=== PATIENT | male | born 1960 | race Caucasian/White ===

== ENCOUNTER 2023-10-13 10:54 | Emergency (ER) | payer BC ==
[~2023-10-13] VITALS: Ht 175.3 cm; Wt 83.9 kg
[2023-10-13 11:00] VITALS: BP_SYST 159; PULSE 78; RESP 18; TEMP 97.8; O2SAT 95
[2023-10-13] MEDS ORDERED: CYCL10TA24 PO (13:32)
[2023-10-13] MEDS ORDERED: NAPR-1172 PO (13:32)
[2023-10-13] MEDS ORDERED: LIDO1ADH22 TP (13:32)
[2023-10-13] MEDS: LIDOCAINE PATCH 5% 1 EA TP ONE (13:51)
[2023-10-13 13:58] VITALS: BP_SYST 159; PULSE 78; RESP 18; TEMP 97.8; O2SAT 95
== END 2023-10-13 13:56 | disposition home or self-care (01) ==
LOC: SED 10:54
DX: S29.011A Strain of muscle and tendon of front wall of thorax, initial encounter (principal); Z79.899 Other long term (current) drug therapy; X58.XXXA Exposure to other specified factors, initial encounter; Y93.89 Activity, other specified; Y92.89 Other specified places as the place of occurrence of the external cause; Y99.8 Other external cause status
CPT/HCPCS: 71045; 71100; 99284

== ENCOUNTER 2024-04-04 13:38 | Emergency (ER) | payer BC ==
[~2024-04-04] VITALS: Ht 177.8 cm; Wt 86.2 kg
[~2024-04-04 13:38] MED LIST: CYCL10TA24 PO; LIDO1ADH22 TP; NAPR-1172 PO
[2024-04-04 13:46] VITALS: BP_SYST 146; PULSE 70; RESP 16; TEMP 97.1; O2SAT 96
[2024-04-04 14:53] LABS: BILIRUBIN,URINE NEGATIVE (NEGATIVE); CLARITY/URINE CLEAR (CLEAR); COLOR,URINE YELLOW (YELLOW); GLUCOSE,URINE NEGATIVE (NEGATIVE); KETONES,URINE NEGATIVE (NEGATIVE); LEUKOCYTE ESTERASE ,URINE NEGATIVE (NEGATIVE); NITRITE, URINE NEGATIVE (NEGATIVE); PROTEIN URINE NEGATIVE (NEGATIVE); UROBILINOGEN,URINE 0.2 (0.2-1.0)
[2024-04-04 15:02] LABS: BLOOD, URINE TRACE (NEGATIVE)
[2024-04-04 15:04] LABS: BACTERIA,URINE None Seen /HPF (None Seen); MUCUS,URINE 1+ /LPF (None Seen)
[2024-04-04 16:10] VITALS: BP_SYST 146; PULSE 70; RESP 16; TEMP 97.1; O2SAT 96
[2024-04-04] MEDS ORDERED: IBUP-1969 PO (16:11)
[2024-04-04] MEDS ORDERED: SULF1TAB48 PO (16:11)
[2024-04-04] MEDS: SULFAMETHOXAZOLE/TRIMETHOPR DS 1 TABLET PO ONE (16:11)
== END 2024-04-04 16:12 | disposition home or self-care (01) ==
LOC: SED 13:38
DX: N20.0 Calculus of kidney (principal); R10.9 Unspecified abdominal pain; Z79.899 Other long term (current) drug therapy; Z79.2 Long term (current) use of antibiotics
CPT/HCPCS: 81000; 81001; 81015; 99284